=== PATIENT | female | born 1950 | race Caucasian/White ===

== ENCOUNTER → 2016-12-12 | Outpatient (CLI) | payer OTHER, BC ==
[~2016-12-12] MED LIST: GADOBUTROL 10 ML VIAL IVP ONE
[2016-12-12 11:04] LABS: CREATININE 0.7 mg/dL (0.6-1.0); GLOMERULAR FILTRATION RATE > 60
== END ==
LOC: FIMAGING 10:18
PROVIDERS: ATTEND Internal Medicine Hematology & Oncology
DX: Z12.39 Encounter for other screening for malignant neoplasm of breast (principal); Z85.3 Personal history of malignant neoplasm of breast
CPT/HCPCS: 0159T; A9585; C8908

== ENCOUNTER → 2017-06-13 | Outpatient (CLI) | payer OTHER, BC | LOC: FIMAGING 11:41 | PROVIDERS: ATTEND Internal Medicine Hematology & Oncology | DX: N60.01 Solitary cyst of right breast (principal); Z85.3 Personal history of malignant neoplasm of breast ==

== ENCOUNTER → 2018-06-07 | Outpatient (CLI) | payer OTHER, BC | LOC: FIMAGING 11:23 | PROVIDERS: ATTEND Internal Medicine Hematology & Oncology | DX: Z12.31 Encounter for screening mammogram for malignant neoplasm of breast (principal); Z80.3 Family history of malignant neoplasm of breast ==

== ENCOUNTER → 2018-06-08 | Outpatient (CLI) | payer OTHER, BC | LOC: FIMAGING 11:43 | PROVIDERS: ATTEND Internal Medicine Hematology & Oncology | DX: Z12.39 Encounter for other screening for malignant neoplasm of breast (principal); Z85.3 Personal history of malignant neoplasm of breast | CPT/HCPCS: A9585; C8908; 82565-PO ==

== ENCOUNTER 2018-06-10 18:48 | Emergency (ER) | payer OTHER, BC ==
--- NOTE | 2018-06-10 18:50 | EDPHY ---
H & P Time Seen by Provider: 06/10/18 18:50 HPI/ROS: CHIEF COMPLAINT: "I'm so upset" HISTORY OF PRESENT ILLNESS: 68-year-old female arrives via ambulance complaints of emotional upset. Patient is visiting from [facility] , comes to [place] for breast cancer follow-up with Dr. Patricia capps , had an MRI of her breasts yesterday. This evening she was involved in a verbal argument with her son with whom she was staying. She left the house. She took an Uber to a hotel , started crying and the [employer] wedding transportation driver called 911. Patient's or belongings with her. She denies suicidal or homicidal ideation. No complaints of pain. Visiting from [place]. Today is Monday. Has an appoint with Dr. De Leon on Monday. REVIEW OF SYSTEMS: 10 systems reviewed and negative with the exception of the elements mentioned in the history of present illness PAST MEDICAL & SURGICAL HISTORY: Breast cancer SOCIAL HISTORY: Visiting from [place] in town for follow-up with Dr. De Leon. PHYSICAL EXAM (Prior to examination, patient consented to physical exam, hands were washed and my usual and customary physical exam procedures followed) 1) GENERAL: Well-developed, well-nourished, alert and oriented. Hyperventilating, crying 2) HEAD: Normocephalic, atraumatic 3) HEENT: Pupils equal, round, reactive to light bilaterally. Sclera anicteric. 4) NECK: Full range of motion, no meningeal signs. 5) LUNGS: Clear auscultation bilaterally, no wheezes, no rhonchi, no retractions. 6) HEART: Regular rate and rhythm, no murmur, no heave, no gallop. 7) ABDOMEN: No guarding, no rebound, no focal tenderness, 8) MUSCULOSKELETAL: No peripheral edema or discoloration. 9) BACK: No obvious trauma, no visual or palpable abnormality. 10) SKIN: No rash, no petechiae. 11) Psychiatric: Patient is oriented X 3, she appears anxious, she is hyperventilating, crying 12) NEURO: Awake, alert, and oriented to person, place and time. Answers questions appropriately. There were no obvious focal neurologic abnormalities. No cerebellar dysfunction. Cranial nerves 2 through to 12 intact. Normal steady gait. Upper and lower extremities bilaterally with strength 5 / 5, reflexes 2+.. DIFFERENTIAL DIAGNOSIS: In no particular include but limited to acute anxiety attack, suicidal ideation, homicidal ideation, depression - Medical/Surgical History Hx Asthma: No Hx Chronic Respiratory Disease: No Hx Diabetes: No Hx Cardiac Disease: No Hx Renal Disease: No Hx Cirrhosis: No Hx Alcoholism: No Hx HIV/AIDS: No Hx Splenectomy or Spleen Trauma: No Other PMH: breast cancer, hysterectomy, gall bladder - Social History Smoking Status: Never smoked Constitutional: Initial Vital Signs Temperature (C) 36.8 C 06/10/18 18:54 Heart Rate 92 06/10/18 18:54 Respiratory Rate 22 H 06/10/18 18:54 Blood Pressure 158/95 H 06/10/18 18:54 O2 Sat (%) 94 06/10/18 18:54 O2 Delivery Mode Room Air Allergies/Adverse Reactions: No Known Allergies Allergy (Verified 08/19/14 18:29) Home Medications: Medication Instructions Recorded NK [No Known Home Meds] 08/19/14 Medical Decision Making ED Course/Re-evaluation: 6:58 p.m.: Will administer IV Ativan re-evaluated. She is currently hyperventilating, crying, appears emotionally upset. Denies suicidal or homicidal ideation. 8:28 p.m.: Patient has been given 1 mg of IV Ativan. I re-evaluated her with serial exams most recently at this time. She remains hyperventilating, crying. Will administer further Ativan and re-evaluated. 9:40 p.m.: Re-evaluation after 2nd dose of Ativan. Patient more calm. No longer crying, no longer hyperventilating. She denies suicidal or homicidal ideation at this time as well. Plan will be discharge. She has hotel room at the [facility] already booked for this evening. Given a take-home of Ativan. She feels comfortable being discharged. Feels that she would feel more comfortable sleeping at the [facility] verses the ER this evening. My Usual and customary return precautions and instructions provided. - Data Points Medications Given: Discontinued Medications Lorazepam (Ativan Injection) 1 mg IVP EDNOW ONE Stop: 06/10/18 19:09 Last Admin: 06/10/18 19:24 Dose: 1 mg Departure - Departure Disposition: Home, Routine, Self-Care Clinical Impression: Emotional upset Condition: Good Instructions: Lorazepam (By mouth), Anxiety (ED) Additional Instructions: Return to the ER immediately if you experience thoughts of hurting yourself, thoughts of hurting other people, thoughts of killing other people or killing yourself, or any other symptoms that concern you. Referrals: Nessa Kruse, DO [Doctor of Osteopathy] - 1-2 days without fail
[2018-06-10] MEDS ORDERED: LORazepam 2 MG/ML INJ IVP ONE ×2 (19:08→20:27)
[2018-06-10] MEDS ORDERED: LORAZEPAM 1 MG PREPACK#4 BTL TAKEHOME ONE (20:44)
[2018-06-10 22:10] VITALS: BP 146/83
== END 2018-06-10 22:09 | disposition home or self-care (01) ==
LOC: EDUNIT#
DX: R45.89 Other symptoms and signs involving emotional state (principal); Z85.3 Personal history of malignant neoplasm of breast
CPT/HCPCS: 96374; 96376; 99284; J2060